=== PATIENT | female | born 1990 | race Caucasian/White ===

== ENCOUNTER 2020-01-12 11:07 | Emergency (ER) | payer SELFPAY ==
[~2020-01-12] VITALS: Ht 162.6 cm; Wt 63.7 kg
[2020-01-12] MEDS ORDERED: IBUPROFEN 800 MG TAB PO ONE (11:45)
[2020-01-12] MEDS ORDERED: ADACEL/BOOSTRIX VACCINE (DIPHTH/PERTUSS/ACELL/TETANUS)0.5ML SYR (90715) IM ONE (11:45)
[2020-01-12] MEDS ORDERED: NEOSPORIN TOP OINT 15GM TOP ONE (11:45)
[2020-01-12] MEDS ORDERED: ACETAMINOPHEN 500 MG TAB PO ONE (11:45)
[2020-01-12] MEDS ORDERED: AUGM875T28 PO (12:52)
[2020-01-12 12:58] VITALS: BP 131/61
== END 2020-01-12 13:00 | disposition home or self-care (01) ==
LOC: M ED 11:07
DX: S00.83XA Contusion of other part of head, initial encounter (principal); S81.852A Open bite, left lower leg, initial encounter; W54.0XXA Bitten by dog, initial encounter; Y00.XXXA Assault by blunt object, initial encounter; Y92.008 Other place in unspecified non-institutional (private) residence as the place of occurrence of the external cause; Y93.89 Activity, other specified; Y99.9 Unspecified external cause status; F17.218 Nicotine dependence, cigarettes, with other nicotine-induced disorders; F12.10 Cannabis abuse, uncomplicated; Z88.8 Allergy status to other drugs, medicaments and biological substances

== ENCOUNTER 2022-04-03 14:06 | Emergency (ER) | payer BC, SELFPAY ==
[~2022-04-03] VITALS: Ht 165.1 cm; Wt 70.2 kg
[~2022-04-03 14:06] MED LIST: AUGM875T28 PO
[2022-04-03] MEDS ORDERED: ONDA4TAB6 (14:22)
[2022-04-03 14:51] LABS: BASO % 0.3 % (0.0-1.0); EOS % 0.3 % (0.0-3.0); HEMATOCRIT 39.3 % (36.0-47.0); HEMOGLOBIN 13.5 g/dl (12.0-15.5); LYMPH # 2.6 10^3/uL (1.5-5.0); MEAN CORPUSCULAR HEMOGLOBIN 29.2 pg (27.0-33.0); MEAN CORPUSCULAR HGB CONC 34.4 g/dl (32.0-36.5); MEAN CORPUSCULAR VOLUME 84.9 fl (80.0-96.0); MONO % 8.6 % (2.0-8.0); NEUTROPHILS # 8.1 10^3/uL (1.5-8.5); NEUTROPHILS % 68.5 % (36.0-66.0); PLATELET COUNT, AUTOMATED 429 10^3/uL (150-450); RED BLOOD COUNT 4.63 10^6/uL (4.00-5.40); WHITE BLOOD COUNT 11.9 10^3/uL (4.0-10.0)
[2022-04-03] MEDS ORDERED: GI COCKTAIL 50ML BTL(HYOSCYAMINE/MAALOX/LIDOCAINE VISCOUS)(1:3:1) PO ONE (15:05)
[2022-04-03 15:24] LABS: BILIRUBIN,DIRECT 0.2 MG/DL (0.0-0.2); BILIRUBIN,TOTAL 0.7 MG/DL (0.2-1.0); TOTAL PROTEIN 7.4 GM/DL (6.4-8.2)
[2022-04-03] MEDS ORDERED: KCL 10MEQ/100ML SWI (KRUN) 10 MEQ in IV 1 EA IV ONE (16:10)
[2022-04-03] MEDS ORDERED: ISOVUE-370 76% 100ML VIAL As Ordered ONE (16:43)
[2022-04-03] MEDS ORDERED: HALOPERIDOL 5MG/ML VIAL (J1630 PER 1) IV ONE (17:30)
[2022-04-03] MEDS ORDERED: REGL5TAB2 PO (17:57)
[2022-04-03 18:09] VITALS: BP 106/64
== END 2022-04-03 18:11 | disposition home or self-care (01) ==
LOC: M ED 14:06
DX: R10.9 Unspecified abdominal pain (principal); F12.10 Cannabis abuse, uncomplicated; Z87.442 Personal history of urinary calculi; Z88.8 Allergy status to other drugs, medicaments and biological substances
CPT/HCPCS: 74177; 80047; 80076; 83690; 84702; 85025; 96365; 96375; 99284; J1630; Q9967

== ENCOUNTER 2024-01-10 10:27 | Day surgery (SDC) | payer BC ==
[~2024-01-10] VITALS: Ht 162.6 cm; Wt 74.4 kg
[~2024-01-10 10:27] MED LIST changes: +ONDA4TAB6; +REGL5TAB2 PO
[2024-01-10] MEDS ORDERED: LIDOCAINE 2% 100MG/5ML SDV (FOR ANES.) As Ordered ONE (10:45)
[2024-01-10] MEDS ORDERED: propofoL 200 MG/20 ML VIAL As Ordered ONE (10:45)
[2024-01-10] MEDS ORDERED: KETOROLAC 60MG 2ML VIAL As Ordered ONE (10:45)
[2024-01-10] MEDS ORDERED: ONDANSETRON 4MG 2ML VIAL As Ordered ONE (10:45)
[2024-01-10] MEDS ORDERED: MIDAZOLAM INJ 2MG/2ML VIAL As Ordered ONE (10:52)
[2024-01-10] MEDS ORDERED: fentaNYL 100 MCG/2 ML INJECTION As Ordered ONE (10:53)
[2024-01-10] MEDS: ceFAZolin SOD 2 GM in IV 1 EA IV ONE (11:38)
[2024-01-10] MEDS: LIDOCAINE 1% MDV 20ML VIAL As Ordered ONE (11:41)
[2024-01-10] MEDS ORDERED: ACETAMINOPHEN 1000MG 100ML IV BAG As Ordered ONE (11:44)
[2024-01-10 12:05] VITALS: BP 126/63; TEMP 98.7; O2SAT 96
== END 2024-01-10 12:26 | disposition home or self-care (01) ==
LOC: M SDC 10:27
PROVIDERS: ATTEND Podiatrist Foot & Ankle Surgery
DX: M67.471 Ganglion, right ankle and foot (principal); Z88.8 Allergy status to other drugs, medicaments and biological substances; Z87.891 Personal history of nicotine dependence
CPT/HCPCS: 28090; 81025; 88304; J0131; J0665; J0690; J1100; J1885; J2250; J2405; J3010